=== PATIENT | female | born 1955 | race Caucasian/White ===

== ENCOUNTER 2023-09-20 10:18 | Outpatient (RCR) | payer MEDICARE, SELFPAY ==
--- NOTE | 2023-09-17 10:43 | ONC.NURNOTE ---
Dx: Small cell cancer of the lung
== END 2024-03-18 23:59 | disposition home or self-care (01) ==
LOC: CCIC 10:18
PROVIDERS: Visit Provider Radiology Radiation Oncology
DX: C34.91 Malignant neoplasm of unspecified part of right bronchus or lung (principal)
CPT/HCPCS: 99211